=== PATIENT | male | born 1955 | race Caucasian/White ===

== ENCOUNTER 2016-12-26 16:33 | Emergency (ER) | payer OTHER ==
[~2016-12-26] VITALS: Ht 188 cm; Wt 77.1 kg
--- NOTE | ~2016-12-26 | EKG ---
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
[~2016-12-26 16:33] MED LIST: ADVAIR 250-501 EACH; IBUPROFEN 800800 MG PO; LISINOPRIL20 MG; NAPROSYN250 MG; NORCO 5-325 TA1 EACH PO; NORVASC5 MG PO; PROVENTIL HFA6.7 G1 INH; TRAZODONE 150150 M1; ZPAK PO
[2016-12-26 17:44] LABS: ABSOLUTE NEUTROPHILS 4.7 thou/uL (1.4-8.2); BASOPHILS 0.7 % (0.0-2.0); EOSINOPHILS 0.3 % (0.0-3.0); HEMATOCRIT 36.8 % (42.0-52.0); HEMOGLOBIN 12.6 gm/dL (14.0-18.0); LYMPHOCYTES 18.3 % (24.0-44.0); MCH 28.7 pg (26.0-34.0); MCHC 34.3 g/dL (28.0-37.0); MCV 83.8 fL (80.0-100.0); MONOCYTES 8.6 % (1.0-8.0); PLATELET COUNT 318 thou/uL (150-400); POLYS 72.1 % (36.0-66.0); RBC 4.39 mil/uL (4.50-6.00); WBC 6.5 thou/uL (4.0-11.0)
[2016-12-26 17:46] LABS: MANUAL DIFF NO
[2016-12-26 17:54] LABS: ANION GAP 17 mmol/L (7-16); BUN 19 mg/dL (7-18); CALCIUM 8.4 mg/dL (8.5-10.1); CHLORIDE 87 mmol/L (98-107); CO2 23 mmol/L (21-32); CREATININE 1.3 mg/dL (0.7-1.3); GLUCOSE 82 mg/dL (74-106); POTASSIUM 3.2 mmol/L (3.5-5.1); SODIUM 127 mmol/L (136-145)
[2016-12-26 18:02] LABS: ALBUMIN 3.4 g/dL (3.4-5.0); ALKALINE PHOSPHATASE 102 U/L (46-116); SGOT 46 U/L (15-37); SGPT 37 U/L (30-65); TOTAL BILIRUBIN 0.6 mg/dL (<0.1-1.0); TOTAL PROTEIN 7.1 g/dL (6.4-8.2); TROPONIN-I < 0.04 ng/mL (<0.04-0.07)
[2016-12-26] MEDS ORDERED: CETIRIZINE HCL5 MG PO (18:16)
[2016-12-26] MEDS ORDERED: DELTASONE20 MG PO (18:16)
[2016-12-26] MEDS ORDERED: VENTOLIN HFA 1818 GM INH (18:16)
[2016-12-26] MEDS ORDERED: GUAIFEN-CODEIN120 ML PO (18:19)
[2016-12-26 19:20] VITALS: BP 130/88
== END 2016-12-26 19:20 | disposition home or self-care (01) ==
LOC: ER 16:33
PROVIDERS: Physician Assistant
DX: J44.1 Chronic obstructive pulmonary disease with (acute) exacerbation (principal); F17.200 Nicotine dependence, unspecified, uncomplicated; K21.9 Gastro-esophageal reflux disease without esophagitis; F17.210 Nicotine dependence, cigarettes, uncomplicated; I10 Essential (primary) hypertension; E78.00 Pure hypercholesterolemia, unspecified; Z88.0 Allergy status to penicillin; Z71.6 Tobacco abuse counseling

== ENCOUNTER 2017-09-24 17:06 | Emergency (ER) | payer OTHER ==
[~2017-09-24] VITALS: Ht 188 cm; Wt 81.7 kg
[~2017-09-24 17:06] MED LIST changes: +CETIRIZINE HCL5 MG PO; +DELTASONE20 MG PO; +GUAIFEN-CODEIN120 ML PO; +VENTOLIN HFA 1818 GM INH
[2017-09-24] MEDS ORDERED: MOBIC7.5 MG PO (18:20)
[2017-09-24] MEDS ORDERED: HYDROCODONE-AP1 EAC6 PO (18:20)
== END 2017-09-24 18:29 | disposition home or self-care (01) ==
LOC: ER 17:06
DX: S22.31XA Fracture of one rib, right side, initial encounter for closed fracture (principal); I10 Essential (primary) hypertension; K21.9 Gastro-esophageal reflux disease without esophagitis; E78.00 Pure hypercholesterolemia, unspecified; F17.210 Nicotine dependence, cigarettes, uncomplicated; Z88.0 Allergy status to penicillin; W01.0XXA Fall on same level from slipping, tripping and stumbling without subsequent striking against object, initial encounter; Y93.89 Activity, other specified; Y92.89 Other specified places as the place of occurrence of the external cause; Y99.8 Other external cause status

== ENCOUNTER 2019-11-25 08:16 | Emergency (ER) | payer OTHER ==
[~2019-11-25] VITALS: Ht 190.5 cm; Wt 77.1 kg
[~2019-11-25 08:16] MED LIST changes: +HYDROCODONE-AP1 EAC6 PO; +MOBIC7.5 MG PO
[2019-11-25] MEDS ORDERED: HYDROCHLOROTHIA25 M2 PO (08:24)
[2019-11-25 08:50] LABS: ABSOLUTE NEUTROPHILS 3.9 thou/uL (1.4-8.2); BASOPHILS 1.2 % (0.0-2.0); EOSINOPHILS 0.3 % (0.0-3.0); HEMATOCRIT 40.2 % (42.0-52.0); HEMOGLOBIN 13.4 gm/dL (14.0-18.0); LYMPHOCYTES 16.1 % (24.0-44.0); MCH 30.6 pg (26.0-34.0); MCHC 33.3 g/dL (28.0-37.0); MCV 92.1 fL (80.0-100.0); MONOCYTES 10.2 % (1.0-8.0); PLATELET COUNT 220 thou/uL (150-400); POLYS 72.2 % (36.0-66.0); RBC 4.37 mil/uL (4.50-6.00); RDW 14.7 % (10.5-14.5); WBC 5.4 thou/uL (4.0-11.0)
[2019-11-25 08:52] LABS: ANION GAP 17 mmol/L (7-16); BUN 26 mg/dL (7-18); CALCIUM 8.6 mg/dL (8.5-10.1); CHLORIDE 97 mmol/L (98-107); CO2 20 mmol/L (21-32); CREATININE 1.3 mg/dL (0.7-1.3); GLUCOSE 96 mg/dL (74-106); POTASSIUM 4.6 mmol/L (3.5-5.1); SODIUM 134 mmol/L (136-145)
--- NOTE | 2019-11-25 09:01 | EKG ---
[facility] [address] [place] [address] ELECTROCARDIOGRAM REPORT Name: AIDE JUNG Room #: REG [facility]#: [id number] Admission: 11/25/19 Attend Phys: Discharge: Date of : 53 Report #: [id number] THIS REPORT FOR: cc: Roshan Brooks MD, Jeffrey A. MD Couchonnal, Luis F. 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
[2019-11-25 09:02] LABS: ALBUMIN 3.5 g/dL (3.4-5.0); SGOT 70 U/L (15-37); SGPT 40 U/L (30-65); TOTAL BILIRUBIN 0.8 mg/dL (<0.1-1.0); TOTAL PROTEIN 6.5 g/dL (6.4-8.2); TROPONIN-I <0.06 ng/mL (<0.06)
[2019-11-25] MEDS ORDERED: MOBIC7.5 MG PO (10:37)
[2019-11-25 10:46] VITALS: BP 141/88
== END 2019-11-25 10:57 | disposition home or self-care (01) ==
LOC: ER 08:16
PROVIDERS: Emergency Medicine
DX: M54.5 Low back pain (principal); F10.20 Alcohol dependence, uncomplicated; M25.511 Pain in right shoulder; R07.9 Chest pain, unspecified; I10 Essential (primary) hypertension; E78.5 Hyperlipidemia, unspecified; J44.9 Chronic obstructive pulmonary disease, unspecified; K21.9 Gastro-esophageal reflux disease without esophagitis; F17.210 Nicotine dependence, cigarettes, uncomplicated; Z79.899 Other long term (current) drug therapy; Y90.9 Presence of alcohol in blood, level not specified

== ENCOUNTER 2021-05-26 14:10 | Emergency (ER) | payer OTHER ==
[~2021-05-26] VITALS: Ht 188 cm; Wt 83.9 kg
[~2021-05-26 14:10] MED LIST changes: +HYDROCHLOROTHIA25 M2 PO
[2021-05-26] MEDS ORDERED: FLEXERIL PO (15:28)
[2021-05-26] MEDS ORDERED: MOBIC15 MG PO (15:28)
[2021-05-26 15:30] VITALS: BP 116/71
== END 2021-05-26 15:30 | disposition home or self-care (01) ==
LOC: ER 14:10
DX: M54.2 Cervicalgia (principal); M54.6 Pain in thoracic spine; K21.9 Gastro-esophageal reflux disease without esophagitis; I10 Essential (primary) hypertension; E78.00 Pure hypercholesterolemia, unspecified; J44.9 Chronic obstructive pulmonary disease, unspecified; F17.210 Nicotine dependence, cigarettes, uncomplicated; Z79.891 Long term (current) use of opiate analgesic; Z79.51 Long term (current) use of inhaled steroids; Z79.1 Long term (current) use of non-steroidal anti-inflammatories (NSAID); Z79.899 Other long term (current) drug therapy; Z88.8 Allergy status to other drugs, medicaments and biological substances; Z88.0 Allergy status to penicillin; V89.2XXA Person injured in unspecified motor-vehicle accident, traffic, initial encounter; Y93.89 Activity, other specified; Y92.89 Other specified places as the place of occurrence of the external cause; Y99.8 Other external cause status